=== PATIENT | female | born 1950 | race Caucasian/White ===

== ENCOUNTER → 2023-07-02 | Outpatient (CLI) | payer MEDICARE, OTHER ==
[~2023-07-02] MED LIST: AMOXICILLIN 8751 TAB PO; DOXYCYCLINE HY100 MG PO; HCTZ12.5TAB PO; KEPPRA 500MG500 MG PO; MUCINEX 60600 MG/TA1 PO; TRELEGY ELLIPT1 EAC1 IH
== END ==
LOC: MC.RAD 09:53
DX: Z12.31 Encounter for screening mammogram for malignant neoplasm of breast (principal)

== ENCOUNTER → 2023-07-17 | Outpatient (CLI) | payer MEDICARE, OTHER | LOC: MC.RAD 06:55 | DX: N64.89 Other specified disorders of breast (principal) ==

== ENCOUNTER → 2023-09-26 | Outpatient (CLI) | payer MEDICARE ==
[~2023-09-26] MED LIST changes: +Albuterol 0.083% Neb Soln 2.5 MG/3 ML UD IH ONE; +Methacholine Vial A (Clear Label Base-Cntrl) IH ONE; +Methacholine Vial B (Red Label) 0.0625 MG/ML 3 ML VIAL.NEB IH ONE; +Methacholine Vial C (Orange Label) 0.25 MG/ML 3 ML VIAL.NEB IH ONE; +Methacholine Vial D (Yellow Label) 1 MG/ML 3 ML VIAL.NEB IH ONE; +Methacholine Vial E (Green Label) 4 MG/ML 3 ML VIAL.NEB IH ONE; +Methacholine Vial F (Blue Label) 16 MG/ML 3 ML VIAL.NEB IH ONE
== END ==
LOC: COL.CARD 09:02
DX: R06.02 Shortness of breath (principal); Z87.09 Personal history of other diseases of the respiratory system
CPT/HCPCS: J7674